=== PATIENT | male | born 1970 | race Caucasian/White ===

== ENCOUNTER 2025-02-28 06:40 | Emergency (ER) | payer OTHER, SELFPAY ==
[2025-02-28 06:51] VITALS: BP 156/99
[2025-02-28 07:40] LABS: % Basophils 2.4 % (0-2); % Eosinophils 3.7 % (0-6); % Immature Granulocytes 2.3 % (0-0.5); % Lymphocytes 27.2 % (20.5-51.1); % Monocytes 7.1 % (1.7-9.3); % Neutrophils 57.3 % (42.2-75.2); Absolute Basophils 0.2 10^3/uL (0-0.2); Absolute Eosinophils 0.3 10^3/uL (0-0.7); Absolute Immature Granulocytes 0.2 10^3/uL (0-0.05); Absolute Lymphocytes 1.9 10^3/uL (1.2-3.4); Absolute Monocytes 0.5 10^3/uL (0.1-0.6); Absolute Neutrophils 4.1 10^3/uL (1.4-6.5); Hematocrit 39.2 % (39.0-52.0); Hemoglobin 13.6 g/dL (13.0-18.0); Mean Corp Hgb Conc. 34.7 g/dL (33.0-37.0); Mean Corpuscular Volume 86.3 fL (80.0-94.0); Mean Platelet Volume 9.4 fL (7.4-10.4); Nucleated Red Blood Cells % 0 % (-); Platelet Count 296 10^3/uL (130-400); Red Blood Cell Count 4.54 10^6/uL (4.70-6.10); Red Cell Dist. Width 13.1 % (11.5-14.5); White Blood Cell Count 7.1 10^3/uL (4.8-10.8)
[2025-02-28 07:53] LABS: ALT (SGPT) 42 U/L (0-50); AST (SGOT) 27 U/L (17-59); Albumin 4.1 g/dl (3.5-5.0); Alkaline Phosphatase 58 U/L (38-126); Blood Urea Nitrogen 16 mg/dl (9-20); Calcium 9.5 mg/dl (8.4-10.2); Carbon Dioxide 32 mmol/L (22-30); Chloride 106 mmol/L (98-107); Glucose 108 mg/dl (70-99); Potassium 4.6 mmol/L (3.5-5.1); Sodium 142 mmol/L (135-145); Total Bilirubin 0.6 mg/dl (0.2-1.3); Total Protein 6.5 g/dl (6.3-8.2); eGFR > 60.00
[2025-02-28 08:41] VITALS: BMI 30.3
[2025-02-28 08:45] VITALS: BP 146/92
--- NOTE | 2025-02-28 08:55 | ED.GENMED ---
History of Present Illness
General
Chief Complaint: Numbness
Time Seen by Provider: 02/28/25 08:33
History of Present Illness
History of Present Illness:
54-year-old male with history of hypertension and hyperlipidemia presents to the emergency department for evaluation of paresthesias to both hands. He has had intermittent episodes like this over the past several months but they seem to resolve
spontaneously, reports that overnight last night the symptoms became worse and he was unable to sleep. Describes pain to the thumb, index, and middle finger of the left hand as well as paresthesias to the same distribution on the right. Works as a
engraver machine. Has paresthesias and discomfort that radiates to the elbows. Denies any hand weakness at this point.
Review of Systems
Review of Systems
Allergies reviewed?: Yes
All Other Systems: ROS reviewed and negative except as documented in HPI and ROS
Phy Exam
Physical Exam
Physical Exam:
GEN: Well appearing, NAD, WDWN
HEENT: Oral mucosa moist, no scleral icterus
Cardiac: Regular rate
Lung: No respiratory distress, no tachypnea
MSK: No gross deformity or injuries. Range of motion of the shoulders, elbows, and wrists is intact bilaterally. There is pain elicited with bilateral wrist flexion
Skin: Good color, no pallor or jaundice, no rashes
Neuro: AO x3, moves all extremities freely. Positive Tinel's and Phalen sign bilaterally. Handgrip 5 out of 5 bilaterally
Psych: Calm, cooperative
Course
Orders/Labs/Results
Orders:
Orders
02/28/25 07:13
CBC/With Diff [Complete Blood Count/With Diff] Urgent
Comprehensive Metabolic Panel Urgent
Abnormal Lab Results
02/28/25
07:13
RBC 4.54 L 10^6/uL
(4.70-6.10)
Abs Immat Gran (auto) 0.2 H 10^3/uL
(0-0.05)
Immature Gran % 2.3 H %
(0-0.5)
Basophils % 2.4 H %
(0-2)
Carbon Dioxide 32 H mmol/L
(22-30)
Glucose 108 H mg/dl
(70-99)
02/28/25 07:13
02/28/25 07:13
Vital Signs
Initial and Last Documented VS:
Initial Vital Signs
Temp Pulse Resp BP Pulse Ox
98.3 F 63 16 156/99 98
02/28/25 06:51 02/28/25 06:51 02/28/25 06:51 02/28/25 06:51 02/28/25 06:51
Last Documented Vital Signs
Temp Pulse Resp BP Pulse Ox
98.3 F 63 16 146/92 100
02/28/25 06:51 02/28/25 08:45 02/28/25 08:45 02/28/25 08:45 02/28/25 08:49
MDM/Problems Addressed
MDM/Problems Addressed:
Symptoms highly suspicious for carpal tunnel syndrome bilaterally. Certainly could have a component of cubital tunnel or cervical disc disease but I favor carpal tunnel as a source. Will prescribe NSAIDs and recommend hand surgery follow-up as
well as outpatient EMG through his PCP
*Critical Care Note
Total Time (30-74mins, 75-104mins- exclusive of procedures): Not Applicable
ED Attending Note
-
Portions of this chart may have been created with voice recognition software.� Occasional wrong word or��sound alike� substitutions may have occurred due to the inherent limitations of voice recognition software.
Discharge Plan
Departure
Patient Disposition: Home (Routine Discharge)
Date of Disposition: 02/28/25
Time of Disposition: 08:56
Patient with high blood pressure during this ER visit?: No
Discharge Problem:
Carpal tunnel syndrome, bilateral
Instructions: Carpal tunnel syndrome
Prescriptions:
New
diclofenac sodium 75 mg tablet,delayed release (DR/EC)
75 mg PO BID Qty: 20 0RF
Referrals:
Ryan Peralta MD [Active] -
Activity Restrictions/Additional Instructions:
Use carpal tunnel wrist braces at nighttime
Follow up with your primary care physician for an EMG
Follow up with hand surgery
Interventions
Interventions:
*Risk Screen - Suicide Last Done: 02/28/25 06:51
*General Assessment Last Done: 02/28/25 08:49
*Neglect/Abuse Screening Last Done: 02/28/25 06:51
*ED- Fall Risk Assessment Last Done: 02/28/25 08:49
*ED COVID-19 Vaccine History Last Done: 02/28/25 08:49
*Nursing Disposition Last Done: 02/28/25 09:26
ED- Neurological Assessment Last Done: 02/28/25 08:48
Discharge Date and Time
Discharge Date/Time: 02/28/25 09:27
Print Language: AZERI
== END 2025-02-28 09:27 | disposition home or self-care (01) ==
LOC: EMR 06:40
PROVIDERS: Emergency Medicine; EMERGENCY PHYSICIAN Student in an Organized Health Care Education/Training Program; FAMILY PHYSICIAN Family Medicine
DX: G56.03 Carpal tunnel syndrome, bilateral upper limbs (principal); I10 Essential (primary) hypertension; E78.5 Hyperlipidemia, unspecified
CPT/HCPCS: 99283; 80053; 85025